=== PATIENT | male | born 1980 | race Caucasian/White ===

== ENCOUNTER 2023-04-03 07:35 | Emergency (ER) | payer OTHER ==
[~2023-04-03] VITALS: Ht 167.6 cm; Wt 88.0 kg
[2023-04-03 07:38] VITALS: O2SAT 98
[2023-04-03 08:42] LABS: BASOPHILS % 0.8 % (0.0-2.0); EOSINOPHILS % 2.3 % (0.0-5.0); HEMATOCRIT. 36.2 % (42.0-52.0); HEMOGLOBIN. 11.7 g/dL (14.0-18.0); LYMPHOCYTES % 29.1 % (20.0-50.0); MEAN CORPUSCULAR HEMOGLOBIN 27.8 pg (28.0-32.0); MEAN CORPUSCULAR HGB CONC 32.4 g/dL (31.0-37.0); MEAN CORPUSCULAR VOLUME 85.8 fL (80.0-94.0); MEAN PLATELET VOLUME 8.3 fl (7.4-10.4); MONOCYTES % 8.6 % (2.0-8.0); NEUTROPHILS % 59.2 % (40.0-76.0); PLATELET 285 x1000/uL (130-400); RED BLOOD CELL COUNT 4.21 mill/uL (4.7-6.1); RED CELL DISTRIBUTION WIDTH 15.3 % (11.6-14.6); WHITE BLOOD COUNT 4.2 x1000/uL (4.5-11.0)
[2023-04-03 08:58] LABS: PARTIAL THROMBOPLASTIN TIME 52.6 sec (23.4-31.0); PROTHROMBIN TIME 10.5 sec (9.6-11.0)
[2023-04-03 15:24] VITALS: BP 140/88; PULSE 85; RESP 14; TEMP 98.5
== END 2023-04-03 15:26 | disposition home or self-care (01) ==
LOC: ER 07:35
DX: F79 Unspecified intellectual disabilities (principal); Z20.822 Contact with and (suspected) exposure to COVID-19; Z86.2 Personal history of diseases of the blood and blood-forming organs and certain disorders involving the immune mechanism
CPT/HCPCS: 85025; 85610; 85730; 86850; 86900; 86901; 36415; 99285; 86927; 87426; C9803; Z7610; 36430; P9017